=== PATIENT | female | born 1995 | race Caucasian/White ===

== ENCOUNTER 2024-08-06 17:13 | Emergency (ER) | payer SELFPAY ==
[2024-08-06] VITALS (7 sets, daily range): BP systolic 105–139; BP diastolic 62–97; PULSE 70–109; BMI 35.6
[2024-08-06 17:39] LABS: % Basophils 0.8 % (0-2); % Eosinophils 0.5 % (0-6); % Immature Granulocytes 0.2 % (0-0.5); % Lymphocytes 26.7 % (20.5-51.1); % Monocytes 4.1 % (1.7-9.3); % Neutrophils 67.7 % (42.2-75.2); Absolute Basophils 0.1 10^3/uL (0-0.2); Absolute Eosinophils 0.1 10^3/uL (0-0.7); Absolute Lymphocytes 2.4 10^3/uL (1.2-3.4); Absolute Monocytes 0.4 10^3/uL (0.1-0.6); Absolute Neutrophils 6.2 10^3/uL (1.4-6.5); Hematocrit 39.1 % (37.0-47.0); Hemoglobin 13.8 g/dL (12.0-16.0); Mean Corp Hgb Conc. 35.3 g/dL (33.0-37.0); Mean Corpuscular Hgb 31.4 pg (27.0-31.0); Mean Corpuscular Volume 89.1 fL (81.0-99.0); Mean Platelet Volume 9.6 fL (7.4-10.4); Nucleated Red Blood Cells % 0 %; Platelet Count 243 10^3/uL (130-400); Red Blood Cell Count 4.39 10^6/uL (4.20-5.40); Red Cell Dist. Width 11.6 % (11.5-14.5); White Blood Cell Count 9.1 10^3/uL (4.8-10.8)
[2024-08-06 17:54] LABS: HCG, Serum Qualitative Screen Negative
[2024-08-06 17:58] LABS: ALT (SGPT) 27 U/L (0-35); AST (SGOT) 29 U/L (14-36); Albumin 4.7 g/dl (3.5-5.0); Alkaline Phosphatase 69 U/L (38-126); Blood Urea Nitrogen 15 mg/dl (7-17); Carbon Dioxide 22 mmol/L (22-30); Chloride 104 mmol/L (98-107); Glucose 93 mg/dl (70-99); Potassium 3.7 mmol/L (3.5-5.1); Sodium 142 mmol/L (135-145); Total Bilirubin 0.2 mg/dl (0.2-1.3); Total Protein 7.4 g/dl (6.3-8.2); eGFR > 60.00
--- NOTE | 2024-08-06 18:32 | ED.GENMED ---
History of Present Illness
General
Chief Complaint: Dizziness
Source: patient
Time Seen by Provider: 08/06/24 17:52
History of Present Illness
History of Present Illness:
29-year-old female with no significant past medical history presenting to the emergency department for evaluation of episodic dizziness/lightheadedness that has been occurring over the last 10 days, went to urgent care today who sent the patient to
the ER for further evaluation. At present time patient reports she is asymptomatic. She is denying any fevers or recent infectious symptoms. Denies any otalgia, headaches, visual changes, focal weakness or numbness or any other concerns. She
states that there does not seem to be any rhyme or reason to her symptoms but does note that it seems to be a little bit more prevalent midday and will often last for around 1 to 2 hours and then resolved spontaneously. Patient states she has tried
some Tylenol but without much relief. Denies any history of similar. Social history otherwise noncontributory.
Past History
Past History
ED Past Medical History: Other (acne)
ED Past Surgical History: None
Social History
Tobacco: Non-smoker
Alcohol: Occasional
Drug: None
Personal: Single
Living: with family
Employment: Employed
Review of Systems
Review of Systems
All Other Systems: ROS reviewed and negative except as documented in HPI and ROS
Phy Exam
Physical Exam
Physical Exam:
GENERAL: Alert , in no apparent distress
head: Normocephalic atraumatic
EYE: pupils equal and reactive, 4 mm bilateral, EOMI
NECK: Supple, no goiter
ENT: o/p clr, mmm.
CARDIAC: Regular rate and rhythm .
LUNGS: Clear breath sounds bilaterally, no acute respiratory distress, no wheezes/rales/rhonchi
ABDOMEN: Soft, without focal tenderness, no r/g, no cvat
NEUROLOGICAL: Alert and oriented, no focal neuro deficits, ambulating with a steady gait, no ataxia
SKIN: Warm and dry, skin intact.
MUSCULOSKELETAL: No edema, well perfused.
PSYCH: Normal and appropriate interaction.
Scores
Heart Failure Risk
Heart Failure Risk Score: Not Applicable
Heart Score for Chest Pain Patients
STEMI patient?: Not applicable
Withdrawal Assessment of Alcohol
Withdrawal Assessment Completed?: Not applicable
Course
Orders/Labs/Results
Orders:
Orders
08/06/24 17:22
Electrocardiogram (*1) Urgent
Reason for Study: Chest Pain
EKG- Treatment ONCE
Test Result ONCE
08/06/24 17:31
Complete Blood Count/With Diff Urgent
Comprehensive Metabolic Panel Urgent
HCG, Serum Qualitative Screen Urgent
TSH Urgent
Comment: ADD ON
08/06/24 17:53
Add On- LAB Urgent
Tests Added?: TSH
Orthostatic VS- Treatment ONCE
08/06/24 18:55
0.9% Sodium Chloride 500 ml [Nss] 1,000 ml IV BOLUS
Abnormal Lab Results
08/06/24
17:31
MCH 31.4 H pg
(27.0-31.0)
08/06/24 17:31
08/06/24 17:31
Vital Signs
Initial and Last Documented VS:
Initial Vital Signs
Temp Pulse Resp BP Pulse Ox
98.8 F 92 16 130/78 100
08/06/24 17:16 08/06/24 17:16 08/06/24 17:16 08/06/24 17:16 08/06/24 17:16
Last Documented Vital Signs
Temp Pulse Resp BP Pulse Ox
98.8 F 71 21 120/75 100
08/06/24 17:16 08/06/24 20:30 08/06/24 20:30 08/06/24 20:00 08/06/24 20:30
MDM/Problems Addressed
Differential Diagnosis Includes:
BPPV, labyrinthitis, less concern for posterior circulation stroke, anemia, electrolyte derangement,
MDM/Problems Addressed:
29-year-old female presenting to the emergency department for evaluation of episodic lightheadedness for the last 10 days, no exacerbating or alleviating factors. No history of similar. No recent illnesses. Exam is otherwise reassuring and
patient is currently asymptomatic. Will check labs, EKG, orthostatics. Overall less suspicion for any emergent pathologies however given the episodic nature of symptoms I do feel it would be best served for patient to follow-up with cardiology as
she may need a Holter monitor. Patient in agreement with this plan. Anticipate discharge home pending remaining workup.
*Pulse Oximetry
Patient hypoxic: no
*EKG
Comparison EKG: no comparison EKG present
Heart Rate: 72
Rate: normal
Rhythm: sinus
Ischemia: no ischemia
*Critical Care Note
Total Time (30-74mins, 75-104mins- exclusive of procedures): Not Applicable
Patient Management
Escalation/DeEscalation of care consider admission/obs:
Patient remains asymptomatic. She feels well to be discharged home. Chest pain hotline notified to try and help expedite follow-up. Prescription for Antivert sent to patient's pharmacy. Patient aware of return precautions to the ER. Stable for
discharge home otherwise
ED Attending Note
-
Portions of this chart may have been created with voice recognition software.� Occasional wrong word or��sound alike� substitutions may have occurred due to the inherent limitations of voice recognition software.
Discharge Plan
Departure
Patient Disposition: Home (Routine Discharge)
Date of Disposition: 08/06/24
Time of Disposition: 20:20
Patient with high blood pressure during this ER visit?: No
Discharge Problem:
Episodic lightheadedness
Instructions: Vertigo (a Type of Dizziness) (DC), Chest Pain DCA Follow Up
Prescriptions:
New
meclizine [Antivert] 50 mg tablet
50 mg PO BID PRN (Reason: dizziness) Qty: 10 0RF
No Action
Vitamin Tablet
1 tab PO DAILY
acetaminophen 325 MG tablet
650 mg PO Q4HPRN PRN (Reason: mild pain) 0RF
ibuprofen 600 MG tablet
600 mg PO Q4HPRN PRN (Reason: moderate pain/cramps) 0RF
Referrals:
UNKNOWN - PT DOES,NOT KNOW [Family Provider] -
Interventions
Interventions:
*Risk Screen - Suicide Last Done: 08/06/24 18:36
*General Assessment Last Done: 08/06/24 18:36
*Neglect/Abuse Screening Last Done: 08/06/24 18:36
*ED COVID-19 Vaccine History Last Done: 08/06/24 18:36
ED- Neurological Assessment Last Done: 08/06/24 18:42
ED- Cardiac Assessment Last Done: 08/06/24 18:42
ED Swallowing Screen Last Done: 08/06/24 18:42
Discharge Date and Time
Print Language: GAMBIAN
[2024-08-06 18:52] LABS: TSH 1.87 uIU/ml (0.47-4.68)
[2024-08-06] MEDS: NSS 1000 IV (18:56)
== END 2024-08-06 20:35 | disposition home or self-care (01) ==
LOC: EMR 17:13
PROVIDERS: Emergency Medicine; EMERGENCY PHYSICIAN Emergency Medicine
DX: R42 Dizziness and giddiness (principal)
CPT/HCPCS: 96360; 99284; 80053; 84443; 84703; 85025; 93005